=== PATIENT | male | born 1995 ===

== ENCOUNTER 2020-03-23 10:09 | Emergency (ER) | payer OTHER ==
[~2020-03-23] VITALS: Ht 165.1 cm; Wt 65.8 kg
== END 2020-03-23 11:49 | disposition home or self-care (01) ==
LOC: ER 10:09
DX: S40.212A Abrasion of left shoulder, initial encounter (principal); F17.200 Nicotine dependence, unspecified, uncomplicated; W20.8XXA Other cause of strike by thrown, projected or falling object, initial encounter; Y92.89 Other specified places as the place of occurrence of the external cause; Y99.0 Civilian activity done for income or pay
CPT/HCPCS: 70450; 72125; 73010; 99284-25